=== PATIENT | male | born 1995 | race African-American/Black ===

== ENCOUNTER 2024-05-29 18:56 | Emergency (ER) | payer MEDICARE, MEDICAID ==
[~2024-05-29] VITALS: Ht 190.5 cm; Wt 131.0 kg
[2024-05-29 19:28] VITALS: O2SAT 99
[2024-05-29 22:58] LABS: CLARITY URINE CLEAR (CLEAR); COLOR URINE YELLOW (YELLOW); GLUCOSE URINE NEGATIVE (NEGATIVE); KETONES URINE 2+ (NEGATIVE); LEUKOCYTE ESTERASE URINE NEGATIVE (NEGATIVE); NITRITE URINE NEGATIVE (NEGATIVE); OCCULT BLOOD URINE NEGATIVE (NEGATIVE); PH URINE 5.5 (4.5-8.0); PROTEIN URINE NEGATIVE (NEGATIVE); SPECIFIC GRAVITY URINE 1.028 (1.005-1.030); UROBILINOGEN URINE 0.2 E.U./dL (0.2-1.0)
[2024-05-30 00:25] VITALS: BP 167/79; PULSE 85; RESP 17; TEMP 36.61404; O2SAT 100
== END 2024-05-30 01:59 | disposition home or self-care (01) ==
LOC: ER 19:16
DX: R30.0 Dysuria (principal); I10 Essential (primary) hypertension
CPT/HCPCS: 81003; 82962; 99283